=== PATIENT | female | born 1985 | race Caucasian/White ===

== ENCOUNTER 2022-12-05 22:54 | Emergency (ER) | payer SELFPAY ==
[2022-12-06] MEDS ORDERED: Ibuprofen 200 MG TAB ONE (00:19)
== END 2022-12-06 00:49 | disposition home or self-care (01) ==
LOC: CSHERS 22:54
DX: M79.641 Pain in right hand (principal); G40.909 Epilepsy, unspecified, not intractable, without status epilepticus; F17.290 Nicotine dependence, other tobacco product, uncomplicated